=== PATIENT | female | born 1965 | race Caucasian/White ===

== ENCOUNTER 2017-07-12 10:12 | Emergency (ER) | payer BC ==
[~2017-07-12] VITALS: Ht 170.2 cm; Wt 59.0 kg
[2017-07-12] MEDS ORDERED: ROBAXIN500 MG PO (11:13)
[2017-07-12 11:18] VITALS: BP 100/72
== END 2017-07-12 11:19 | disposition home or self-care (01) ==
LOC: M.ERS 10:12
DX: S70.01XA Contusion of right hip, initial encounter (principal); S20.219A Contusion of unspecified front wall of thorax, initial encounter; F17.210 Nicotine dependence, cigarettes, uncomplicated; V89.2XXA Person injured in unspecified motor-vehicle accident, traffic, initial encounter; Y93.89 Activity, other specified; Y92.89 Other specified places as the place of occurrence of the external cause; Y99.8 Other external cause status

== ENCOUNTER 2017-10-28 08:12 | Emergency (ER) | payer BC ==
[~2017-10-28] VITALS: Ht 170.2 cm; Wt 56.7 kg
[~2017-10-28 08:12] MED LIST: ROBAXIN500 MG PO
[2017-10-28] MEDS ORDERED: MULTIVITAMINS1 EAC7 PO (08:16)
[2017-10-28] MEDS ORDERED: FLEXERIL PO (09:21)
[2017-10-28] MEDS ORDERED: PERCOCET 5-3251 EACH PO (09:21)
[2017-10-28] MEDS ORDERED: IBUPROFEN 800800 MG PO (09:21)
[2017-10-28 09:40] VITALS: BP 106/64
== END 2017-10-28 09:41 | disposition home or self-care (01) ==
LOC: M.ERS 08:12
DX: S39.012A Strain of muscle, fascia and tendon of lower back, initial encounter (principal); X50.1XXA Overexertion from prolonged static or awkward postures, initial encounter; Y93.89 Activity, other specified; Y92.89 Other specified places as the place of occurrence of the external cause; Y99.0 Civilian activity done for income or pay